=== PATIENT | male | born 1970 | race Caucasian/White ===

== ENCOUNTER 2022-11-06 12:37 | Outpatient (REF) | payer OTHER, SELFPAY ==
[2022-11-06 13:45] LABS: Hematocrit 42.9 % (42.0-52.0); Hemoglobin 14.5 g/dl (14.0-18.0); Mean Corpuscular HGB Conc 33.8 g/dl (31.0-36.0); Mean Corpuscular Volume 91.9 fL (80.0-98.0); Mean Platelet Volume 11.4 fL (9.4-12.4); Platelet Count 214 X10*3/uL (160-400); Red Blood Count 4.67 X10*6/uL (4.60-5.80); Red Cell Distribution Width 11.9 % (11.0-16.0); White Blood Count 6.4 X10*3/uL (4.8-10.8)
[2022-11-06 14:15] LABS: Anion Gap 11 (12-20); Blood Urea Nitrogen 8 mg/dL (9-16); C Reactive Protein < 0.10 mg/dL (< or = 0.50); Calcium 9.6 mg/dL (8.4-10.2); Carbon Dioxide 30 mmol/L (22-29); Chloride 106 mmol/L (96-108); Estimated Glomerular Filt Rate > 60; Glucose Random 111 mg/dL (60-115); Rheumatoid Factor < 13.0 IU/mL (<15.0); Sodium 142 mmol/L (135-145)
[2022-11-06 14:32] LABS: Erythrocyte Sedimentation Rate 5 MM/HR (0-15)
[2022-11-07 08:58] LABS: Lyme Abs Screen <0.90 index
[2022-11-08 07:56] LABS: HIV AB/AG Nonreactive (Nonreactive); HIV Num 1 0.05 S/CO (0.00-0.99)
[2022-11-08 11:44] LABS: Anti Nuclear Antibody Screen NEGATIVE (NEGATIVE)
[2022-11-09 20:38] LABS: Treponema pallidum Ab FTA ABS Nonreactive (Nonreactive)
== END 2022-11-06 12:38 | disposition home or self-care (01) ==
LOC: HO.LAB 12:37
PROVIDERS: Visit Provider Psychiatry & Neurology Neurology
DX: Z11.4 Encounter for screening for human immunodeficiency virus [HIV] (principal); R51.9 Headache, unspecified
CPT/HCPCS: 36415; 80048; 82550; 85027; 85652; 86038; 86039; 86140; 86431; 86617; 86618; 86780; 87389

== ENCOUNTER 2022-11-10 09:15 | Day surgery (SDC) | payer OTHER, SELFPAY ==
[2022-11-10] VITALS (8 sets, daily range): BP systolic 119–133; BP diastolic 69–87; PULSE 67–77; RESP 18–19; TEMP 36.6–36.7; O2SAT 96–98; BMI 30.5
--- NOTE | ~2022-11-10 | FL_ITS ---
EXAMINATION: XR LUMBAR PUNCTURE CLINICAL INFORMATION: Headache with white matter changes. COMPARISON: None TECHNIQUE: Fluoroscopic-guided lumbar puncture. FINDINGS: Informed consent was obtained from the patient prior to the procedure. During this process, the procedure and potential alternatives were explained, along with the intended outcome and benefits. The risks of the procedure, as well as the risk of not doing the procedure, were discussed. The patient was given the opportunity to ask questions regarding the procedure and appeared competent to make medical decisions. A signed consent form which documents this discussion was placed in the medical record. Using sterile technique and fluoroscopic guidance from a posterior approach a 22-gauge spinal needle was directed into the thecal sac at the L3-L4 disc space level. Opening pressure was 22.7 cm of water. Closing pressure was 18.7 cm of water. 9 mL of cerebrospinal fluid was removed. FLUOROSCOPY TIME: 0.6 minutes DOSE AREA PRODUCT: 3.417 Gy-cm2 (Hood-centimeter squared) FL/FL guided lumbar puncture LP IMPRESSION: Fluoroscopic lumbar puncture as described above.
[2022-11-10 10:24] LABS: MANUAL DIFF FLAG NO
[2022-11-10 10:26] LABS: Basophils Absolute Auto 0.1 X10*3/uL (0.0-0.2); Basophils Percent Auto 0.9 % (0-2); Eosinophils Absolute Auto 0.1 X10*3/uL (0.0-0.4); Eosinophils Percent Auto 1.5 % (0-4); Hemoglobin 14.9 g/dl (14.0-18.0); Imm Gran Abs Auto 0.01 X10*3/uL (0.00-0.03); Imm Gran Pct Auto 0.2 % (0.0-0.4); Lymphocytes Absolute Auto 1.2 X10*3/uL (1.2-4.9); Lymphocytes Percent Auto 22.1 % (20-40); Mean Corpuscular HGB Conc 34.7 g/dl (31.0-36.0); Mean Corpuscular Hemoglobin 31.1 pg (27.0-33.0); Mean Corpuscular Volume 89.8 fL (80.0-98.0); Mean Platelet Volume 10.4 fL (9.4-12.4); Monocytes Absolute Auto 0.5 X10*3/uL (0.1-1.2); Monocytes Percent Auto 9.1 % (2-11); Neutrophils Absolute Auto 3.6 x10*3/uL (2.0-8.3); Neutrophils Percent Auto 66.2 % (45-73); Platelet Count 192 X10*3/uL (160-400); Red Blood Count 4.79 X10*6/uL (4.60-5.80); Red Cell Distribution Width 11.8 % (11.0-16.0); White Blood Count 5.4 X10*3/uL (4.8-10.8)
[2022-11-10 10:34] LABS: INTERNATIONAL NORM RATIO 0.9 (0.9-1.1); Prothrombin Time 10.7 SEC (10.0-13.1)
[2022-11-10 10:36] LABS: Partial Thromboplastin Time 30.8 SEC (26.0-36.4)
[2022-11-10] MEDS: 0.9 % Sodium Chloride 1,000 ML 100 ML IVCONT (14:12)
[2022-11-10 15:01] LABS: Glucose CSF 62 mg/dL; Total Protein CSF 37.1 mg/dL (15-45)
[2022-11-10 15:08] LABS: CSF Appearance Clear, Colorless; CSF Tube # 1
[2022-11-10 15:13] LABS: Lymphocytes CSF 75 %; Neutrophils CSF 25 %
[2022-11-10 15:14] LABS: CSF Monos 19 %; Lymphocytes CSF 81 %
[2022-11-10 15:17] LABS: Appearance CSF CLEAR; CSF Tube # 1; Color CSF COLORLESS; Red Blood Cell CSF 379 MM*3; White Blood Cell CSF 4 MM*3
[2022-11-10 15:18] LABS: Appearance CSF CLEAR
[2022-11-10 15:19] LABS: CSF Tube # 4; CSF Volume 2.5 ML; Color CSF COLORLESS; Red Blood Cell CSF 9 MM*3; White Blood Cell CSF 3 MM*3
[2022-11-15 13:09] LABS: Albumin 3.8 g/dL (3.6-5.1); Albumin, CSF 23.5 mg/dL (8.0-42.0); IgG 895 mg/dL (600-1640); IgG Synthesis Rate 1.8 mg/24 h (-9.9-3.3); IgG, CSF 3.5 mg/dL (0.8-7.7)
== END 2022-11-10 16:24 | disposition home or self-care (01) ==
PROVIDERS: Psychiatry & Neurology Neurology; Visit Provider Radiology Diagnostic Radiology
PROC: 009U3ZZ Drainage of Spinal Canal, Percutaneous Approach (ICD-10-PCS; CPT 62270; principal; 2022-11-10 11:00)
DX: G93.49 Other encephalopathy (principal); G43.909 Migraine, unspecified, not intractable, without status migrainosus; E78.5 Hyperlipidemia, unspecified; F41.8 Other specified anxiety disorders; H55.01 Congenital nystagmus; Z79.899 Other long term (current) drug therapy; Z88.0 Allergy status to penicillin; Z88.2 Allergy status to sulfonamides
CPT/HCPCS: 36415; 62328; 82042; 82945; 83916; 84157; 85025; 85610; 85730; 87015; 87070; 87205; 89051